=== PATIENT | male | born 1960 | race African-American/Black ===

== ENCOUNTER 2019-07-26 15:01 | Emergency (ER) | payer OTHER ==
[~2019-07-26] VITALS: Ht 180.3 cm; Wt 104.3 kg
[~2019-07-26 15:01] MED LIST: KEFLEX500 MG ORAL
[2019-07-26 17:03] VITALS: BP 113/75
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
[2019-07-26 17:18] VITALS: BP 122/86
[2019-07-26 18:32] VITALS: BP 122/79
[2019-07-26] MEDS ORDERED: NAPROXEN500 M2 ORAL (18:32)
[2019-07-26] MEDS ORDERED: CYCLOBENZAPRINE10 MG ORAL (18:32)
--- NOTE | 2019-07-26 18:33 | NUR ---
ER DISCHARGE NOTE: Patient is cleared to be discharged per ERMD, pt is aox4, on room air, with stable vital signs. pt was given dc and prescription instructions, pt was able to verbalize understanding, pt id band removed. pt is able to ambulate with steady gait. pt took all belongings.
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
== END 2019-07-26 18:32 | disposition home or self-care (01) ==
LOC: EMR 15:25
DX: S39.012A Strain of muscle, fascia and tendon of lower back, initial encounter (principal); S16.1XXA Strain of muscle, fascia and tendon at neck level, initial encounter; V43.52XA Car driver injured in collision with other type car in traffic accident, initial encounter; Y92.410 Unspecified street and highway as the place of occurrence of the external cause
CPT/HCPCS: 72020; 72070; 99284